=== PATIENT | male | born 1950 | race Hispanic/Latino ===

== ENCOUNTER 2017-09-01 11:14 | Emergency (ER) | payer MEDICARE, MEDICAID ==
--- NOTE | 2017-09-01 11:50 | RAD ---
CHEST 1 VIEW: Date: 09/01/17 HISTORY: Dyspnea. COMPARISON: Chest 2 view dated 07/15/17. FINDINGS: Lungs are hypoinflated. There are perihilar and lower lobe opacities. Small effusion. No pneumothora x. IMPRESSION: Lung hypoinflation and vascular crowding, as well as lower lobe opacities and small effusion. Findin gs can be seen on multifocal pneumonia. CHF is also within the differential. Follow-up 2 views with full inspiration recommended. POS: OFF
[2017-09-01] MEDS ORDERED: Albuterol Sulfate 2.5 mg/0.5 ml Neb ONE ×2 (12:01)
[2017-09-01 12:04] LABS: #Eosinphils 0.1 thou/uL (0.0-0.7); #Lymphocytes 2.1 thou/uL (1.20-3.40); #Monocytes 0.9 thou/uL (0.11-0.59); #Neutrophils 8.1 thou/uL (1.40-6.50); %Basophils 0.2 % (0.0-1.0); %Eosinophils 0.5 % (0.0-10.0); %Lymphocytes 19.1 % (21.0-51.0); %Monocytes 7.7 % (0.0-10.0); Hematocrit 47.7 % (42.0-52.0); Mean Platelet Volume 7.1 fL (7.4-10.4); Red Blood Cell (RBC) Count 4.78 mill/uL (4.70-6.10); White Blood Cell (WBC) Count 11.1 thou/uL (4.8-10.8)
[2017-09-01 12:28] LABS: ALT (SGPT) 59 U/L (8-55); AST (SGOT) 56 U/L (5-34); Alkaline Phosphatase 76 U/L (40-150); Anion Gap 14 mmol/L (10-20); BUN (Urea Nitrogen) 18 mg/dL (8.4-25.7); Bilirubin, Total 0.6 mg/dL (0.2-1.2); CK (CPK) 159 U/L (30-200); Calc. Creatinine Clearance 0 mL/min (70-130); Calcium 9.2 mg/dL (7.8-10.44); Carbon Dioxide 29 mmol/L (23-31); Chloride 102 mmol/L (98-107); Estimated GFR-MDRD 66; Globulin 5.2 g/dL (2.4-3.5); Lipase 56 U/L (8-78); Protein, Total 8.4 g/dL (5.8-8.1)
[2017-09-01 12:40] LABS: Troponin I Less than 0.010 ng/mL (< 0.028)
== END 2017-09-01 14:45 | disposition home or self-care (01) ==
LOC: ERS 11:14
DX: J18.9 Pneumonia, unspecified organism (principal); J44.9 Chronic obstructive pulmonary disease, unspecified; Z79.899 Other long term (current) drug therapy
CPT/HCPCS: 71010; 80053; 82553; 83690; 83880; 84484; 85025; 93005; 94640; 94760; J7611

== ENCOUNTER 2018-10-22 14:43 | Outpatient (CLI) | payer MEDICARE, MEDICAID ==
--- NOTE | 2018-10-22 16:12 | RAD ---
PA AND LATERAL CHEST: Date: 10/22/18 COMPARISON: 07/15/17. HISTORY: Dyspnea. FINDINGS: Heart size is within normal limits with atherosclerotic changes within aorta which is mildly tortuous . Lungs are clear of any infiltrative process. There is some linear scarring in the left base. This a ppears stable. IMPRESSION: Stable exam. Linear scarring within the left lung base. POS: [facility]
== END 2018-10-22 14:44 | disposition home or self-care (01) ==
LOC: RAD 14:43
PROVIDERS: ATTEND Family Medicine
DX: R06.00 Dyspnea, unspecified (principal); J98.4 Other disorders of lung
CPT/HCPCS: 71046

== ENCOUNTER 2019-06-22 14:03 | Outpatient (CLI) | payer MEDICARE, MEDICAID ==
--- NOTE | 2019-06-23 15:05 | PFT ---
PATIENT HISTORY: HEIGHT: 62 in WEIGHT: 185 SMOKER: yes HOW LON yrs PACKS PER DAY cigars PRODUCTIVE COUGH: LUNG DISEASE: PHYSICIAN INTERPRETATION FINAL REPORT: Patient had Pulmonary function test done. He is Bi-Polar Schizophrenic. He has on-going tobacco abuse, unfortunately he was unable to do the pulmonary Function Test. He could not understand the PFT instructions. Only one attempt was done. FEV1 of apparently 2.18 (84%) predicted. and FVC 2.07 (66%) unclear if this is accurate or not. IMPRESSION: PFT show surprisingly normal flows with reduction in vital capacity. 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
== END 2019-06-22 14:04 | disposition home or self-care (01) ==
LOC: CP 14:03
PROVIDERS: ATTEND Internal Medicine Pulmonary Disease
DX: J44.9 Chronic obstructive pulmonary disease, unspecified (principal)
CPT/HCPCS: 94729

== ENCOUNTER 2019-09-03 10:55 | Emergency (ER) | payer MEDICARE, MEDICAID ==
[2019-09-03] MEDS ORDERED: Ibuprofen 800 MG TAB ONE (13:29)
== END 2019-09-03 13:50 | disposition home or self-care (01) ==
LOC: ERS 10:55
DX: M25.562 Pain in left knee (principal); J44.9 Chronic obstructive pulmonary disease, unspecified; I50.9 Heart failure, unspecified; E03.9 Hypothyroidism, unspecified; F17.210 Nicotine dependence, cigarettes, uncomplicated; Z79.899 Other long term (current) drug therapy
CPT/HCPCS: 99283

== ENCOUNTER 2020-11-22 12:17 | Inpatient (IN) | payer MEDICARE, MEDICAID ==
[~2020-11-22 12:17] MED LIST: Iopamidol-370 76% 500 ML 1 ML ONE
[2020-11-22] MEDS ORDERED: Dexamethasone 4 mg/ml Vial ONE (12:52)
[2020-11-22] MEDS ORDERED: Acetaminophen 500 MG TAB ONE (12:52)
[2020-11-22 12:56] LABS: #Basophils 0.1 thou/uL (0.0-0.2); #Lymphocytes 1.2 thou/uL (1.20-3.40); #Monocytes 0.3 thou/uL (0.11-0.59); #Neutrophils 7.4 thou/uL (1.40-6.50); %Basophils 0.6 % (0.0-1.0); %Monocytes 3.5 % (0.0-10.0); %Neutrophils 82.9 % (42.0-75.0); Hemoglobin 15.4 g/dL (14.0-18.0); Mean Corpuscular HGB CONC 30.8 g/dL (32.0-36.0); Mean Corpuscular Hemoglobin 29.2 pg (27.0-31.0); Mean Corpuscular Volume 94.9 fL (78.0-98.0); Mean Platelet Volume 7.9 fL (7.4-10.4); Platelet Count 122 thou/uL (130-400); RBC Distribution Width 12.7 % (11.5-14.5); Red Blood Cell (RBC) Count 5.26 mill/uL (4.70-6.10); White Blood Cell (WBC) Count 8.9 thou/uL (4.8-10.8)
--- NOTE | 2020-11-22 13:16 | RAD ---
EXAM: CHEST ONE VIEW HISTORY: Dyspnea. Urinary frequency. COMPARISON: 10/22/2018 FINDINGS: Cardiac silhouette is magnified by projection but stable in size. Pulmonary vasculature is within nor mal limits. There is patchy increased density seen in the right upper lobe with minimal increased interstitial and patchy densities in the right infrahilar region. Mild atelectasis is present at the left lung base. No other interval change. IMPRESSION: Findings worrisome for infectious process/pneumonia involving the right upper lobe and possibly at th e medial aspect right lung base. Follow-up to resolution is recommended.
[2020-11-22 13:18] LABS: ALT (SGPT) 25 U/L (8-55); AST (SGOT) 70 U/L (5-34); Albumin 3.6 g/dL (3.4-4.8); Alkaline Phosphatase 42 U/L (40-110); Anion Gap 16 mmol/L (10-20); BUN (Urea Nitrogen) 44 mg/dL (8.4-25.7); Bilirubin, Total 0.5 mg/dL (0.2-1.2); CK (CPK) 2569 U/L (30-200); Calc. Creatinine Clearance 0 mL/min (70-130); Calcium 8.2 mg/dL (7.8-10.44); Carbon Dioxide 25 mmol/L (23-31); Chloride 105 mmol/L (98-107); Globulin 4.1 g/dL (2.4-3.5); Glucose 100 mg/dL (83-110); Lipase 83 U/L (8-78); Potassium 4.7 mmol/L (3.5-5.1); Protein, Total 7.7 g/dL (5.8-8.1); Sodium 141 mmol/L (136-145)
[2020-11-22 13:30] LABS: Bilirubin Negative (Negative); Blood, Urine 3+ (Negative); Clarity Turbid (Clear); Glucose, Urine (Dipstick) Normal (Negative); Ketone, Urine 10 mg/dL (Negative); Leukocyte Negative Leu/uL (Negative); Nitrite Negative (Negative); Protein, Urine (Dipstick) 200 mg/dL (Neg-Trace); RBC/HPF Greater than 50 HPF (0-3); Specific Gravity, Urine 1.022 (1.002-1.036); Squamous Epithelial 0-3 HPF (0-3); Urobilinogen Normal mg/dL (Less than 2); WBC/HPF None Seen HPF (0-3); pH, Urine 5.5 (5.0-9.0)
[2020-11-22 13:31] LABS: Bacteria/HPF 1+ HPF (None Seen)
[2020-11-22] MEDS ORDERED: cefTRIAXone\\ROCEPHIN 2 GM VIAL ONE (13:40)
[2020-11-22] MEDS ORDERED: Vancomycin 1 GM/200 ML BAG ONE (13:40)
--- NOTE | 2020-11-22 14:52 | PDOC.FPRHP ---
- History of Present Illness Chief Complaint: altered mental status History of Present Illness: 70 y/o M with PMHx COPD, CKD3 brought by EMS after [facility] tech found patient to be altered and with urinary frequency at home. It is very difficult to get any history from the patient. Unsure of his mental status baseline, has hx mild intellectual disability. He answers most questions in short phrases. He denies essentially all ROS. He lives in an apartment alone in [place], no family in town but has a daughter out of town. He had a fall 1 week ago, but some people helped him up. ED Course: therapeutic lovenox, ASA, vanc, 30ml/kg bolus, tylenol, decadron, rocephin, levaquin - Allergies/Adverse Reactions Allergies Allergy/AdvReac Type Severity Reaction Status Date / Time No Known Allergies Allergy Verified 02/12/20 12:33 - Home Medications Medication Instructions Recorded Confirmed Type Levothyroxine Sodium [Synthroid] 100 mcg PO DAILY 10/18/13 10/18/13 History Lisinopril/Hydrochlorothiazide 1 tab PO DAILY 10/18/13 10/18/13 History [Prinizide] Mometasone/Formoterol 200/5 2 puff INH BID 10/18/13 10/18/13 History [Dulera 200 mcg/5 mcg Inhaler] Simvastatin 20 mg PO QPM 10/18/13 10/18/13 History Sulfamethoxazole/Trimethoprim 1 tab PO BID 10/20/13 10/20/13 History [Bactrim DS] predniSONE [Harpal] 20 mg PO DAILY 10/20/13 10/20/13 History - History PMHx: CKD3, obese, COPD, pulmonary fibrosis, smoker, mild intellectual disability, HLD, hypothyroid, incontinence, HTN, pre-diabetes FHx: noncontributory PSHx: thyroidectomy Social hx: no etoh use, smoker 1972-present - Review of Systems General: denies: fever/chills, fatigue Eyes: denies: vision changes ENT: denies: nasal congestion, rhinorrhea Respiratory: denies: cough, shortness of breath Cardiovascular: denies: chest pain, palpitation, edema Gastrointestinal: denies: nausea, vomiting, diarrhea, abdominal pain Genitourinary: denies: incontinence, dysuria Skin: denies: rashes, lesions Musculoskeletal: denies: pain, swelling Neurological: denies: syncope, seizure - Vital signs BP: 111/95 HR: 117 RR: 37 Tmax: 104.1 Pox: 88% on RA Wt: 91 kg - Physical Exam Constitutional: well developed (awake, alert, confused) HEENT: normocephalic and atraumatic, EOMI Neck: trachea midline Heart: normal S1/S2, no edema, other (tachycardic, exam limited) Lungs: no wheezing, other (poor air movement) Abdomen: soft, non-tender, no masses/distention Musculoskeletal: normal structure, normal tone Neurological: no focal deficit -Neurological: oriented to person, year, place. Not oriented to month Skin: no rash/lesions, no jaundice Heme/Lymphatic: no unusual bruising or bleeding FMR H&P: Results - Labs Result Diagrams: 11/22/20 12:39 11/22/20 12:39 Lab results: WBC 8.9 thou/uL (4.8-10.8) 11/22/20 12:39 Hgb 15.4 g/dL (14.0-18.0) 11/22/20 12:39 Hct 49.9 % (42.0-52.0) 11/22/20 12:39 MCV 94.9 fL (78.0-98.0) 11/22/20 12:39 Plt Count 122 thou/uL (130-400) L 11/22/20 12:39 Neutrophils % 82.9 % (42.0-75.0) H 11/22/20 12:39 Sodium 141 mmol/L (136-145) 11/22/20 12:39 Potassium 4.7 mmol/L (3.5-5.1) 11/22/20 12:39 Chloride 105 mmol/L (98-107) 11/22/20 12:39 Carbon Dioxide 25 mmol/L (23-31) 11/22/20 12:39 BUN 44 mg/dL (8.4-25.7) H 11/22/20 12:39 Creatinine 1.88 mg/dL (0.7-1.3) H 11/22/20 12:39 Glucose 100 mg/dL (83-110) 11/22/20 12:39 Lactic Acid 1.8 mmol/L (0.5-2.2) 11/22/20 12:39 Calcium 8.2 mg/dL (7.8-10.44) 11/22/20 12:39 Total Bilirubin 0.5 mg/dL (0.2-1.2) 11/22/20 12:39 AST 70 U/L (5-34) H 11/22/20 12:39 ALT 25 U/L (8-55) 11/22/20 12:39 Alkaline Phosphatase 42 U/L (40-110) 11/22/20 12:39 Creatine Kinase 2569 U/L (30-200) H 11/22/20 12:39 B-Natriuretic Peptide 22.8 pg/mL (0-100) 11/22/20 12:38 Serum Total Protein 7.7 g/dL (5.8-8.1) 11/22/20 12:39 Albumin 3.6 g/dL (3.4-4.8) 11/22/20 12:39 Lipase 83 U/L (8-78) H 11/22/20 12:39 Urine Ketones 10 mg/dL (Negative) A 11/22/20 13:00 Urine Blood 3+ (Negative) A 11/22/20 13:00 Urine Nitrite Negative (Negative) 11/22/20 13:00 Ur Leukocyte Esterase Negative Gabriel/uL (Negative) 11/22/20 13:00 Urine RBC Greater than 50 HPF (0-3) A 11/22/20 13:00 Urine WBC None Seen HPF (0-3) 11/22/20 13:00 Ur Squamous Epith Cells 0-3 HPF (0-3) 11/22/20 13:00 Urine Bacteria 1+ HPF (None Seen) A 11/22/20 13:00 - EKG Interpretation EKG: sinus tachycardia FMR H&P: Upper Level - Plan 70 yo M with PMH COPD, CKD, hypothyroid is admitted for sepsis 2/2 pneumonia, rhabdo, josafat. Sepsis 2/2 PNA - tmax 104.1, tachypnea, tachycardia on admission with R upper lobe infiltrate on CXR - CTA with bilateral ground glass opacities c/w covid - s/p rocephin, vanc, levaquin in ED - continue rocephin (11/22) and azithromycin - pending Bcx, Ucx - ordered procalcitonin - s/p 30mL/kg bolus ordered in ED, continue IVF Mild Rhabdomyolysis - CK 2500, continue aggressive fluids, strict I/Os and will titrate based on urine output - repeat CK in am - urine with hematuria, cultures pending COVID+ - unknown if any symptom onset - rapid COVID + 11/22 - reported 88% on RA in ED, no O2 requirement on initial evaluation - less likely cause of presentation at this time - s/p decadron in ED, continue steroids at this time also considering COPD hx. Otherwise since no O2 requirement, plasma and remdesivir not indicated now JOSAFAT on CKD3 - baseline Cr 1.1, GFR 60s - admission Cr 1.88, fluid resuscitate and recheck in am Thrombocytopenia - platelets 122, no hx of this, likely 2/2 above Mild AST elevation - 70 on admission, has been mildly elevated in past COPD - continue dickson inhaler (on advair at home) with prn Hypothyroid - continue home synthroid, check TSH HTN - hold home lisinopril, HCTZ until BP can tolerate HLD - continue home statin IVF: LR @ 200 DVT ppx: Lovenox Diet: HH Code: FULL - patient did not seem to have a great understanding of code status PCP: JORDEN Attending: Kyung Dispo: admit inpatient, expected LOS >48 hrs Addendum - Attending - Attending Attestation Date/Time: 11/22/20 [id number] I personally evaluated the patient and discussed the management with Dr. Delacruz/Bernadette. I agree with the History, Examination, Assessment and Plan documented above with any addition or exceptions noted below.
[2020-11-22] MEDS ORDERED: Acetaminophen 325 MG TAB PO PRN (15:01)
[2020-11-22] MEDS ORDERED: Acetaminophen 650 MG Suppository PR PRN (15:01)
[2020-11-22] MEDS ORDERED: Calcium Carbonate 500 MG ChewTAB PO PRN (15:01)
[2020-11-22] MEDS ORDERED: Lactated Ringer's 1,000 ML IV SCH (15:45)
[2020-11-22 15:52] LABS: SARS-CoV-2 NAA Rapid Test DETECTED (NotDetected)
--- NOTE | 2020-11-22 16:38 | CT ---
CTA CHEST WITH CONTRAST: 11/22/20 Axial tomograms obtained following angio protocol with multiplanar reconstruction and 3D postprocessi ng. INDICATIONS: Elevated D-dimer. Short of breath. Sepsis. FINDINGS: Pulmonary arteries show adequate opacification; however, the distal pulmonary arteries are degraded d ue to artifact. There is apparent loss of contrast in the left lower lobe pulmonary artery just beyon d the bifurcation of the interlobar left pulmonary artery. This is felt to be artifactual, although e mbolus is not completely excluded. No proximal pulmonary embolus identified. Thoracic aorta is unremarkable without dissection. Nonspecific mediastinal and hilar lymph nodes. Review of the lung sanchez show ground glass infiltrate s bilaterally. Ground glass infiltrates seen throughout the right upper lobe and some mild ground gla ss infiltrate in the left upper lobe. Ground glass and confluent infiltrate in both posterior lower l obes. No effusion. Images through the upper abdomen unremarkable. MPRESSION: 1. No evidence of proximal pulmonary embolus. More distal pulmonary arteries are suboptimally ev aluated due to artifact as discussed above. 2. Bilateral ground glass type infiltrates consistent with COVID pneumonia. Findings discussed with Dr. Evans. Code CR POS: [facility]
[2020-11-22] MEDS ORDERED: Aspirin Chewable 81 MG TAB ONE (17:26)
[2020-11-22 17:29] LABS: Troponin I 0.024 ng/mL (< 0.028)
[2020-11-22] MEDS ORDERED: Norepinephrine 8 MG/0.9% NS 250 ML ONE (20:43)
[2020-11-22] MEDS ORDERED: Famotidine 20 MG TAB PO SCH (21:00)
[2020-11-22 21:42] LABS: Troponin I 0.022 ng/mL (< 0.028)
[2020-11-22 23:15] LABS: Actual Bicarbonate (HCO3a) 15.9 mEq/L (22-28); Analyzer IN Cardio ER; Base Excess (BEa) -10.5 mEq/L (-2.0 to +3.0); CO2 Tension 37.2 mmHg (35.0-45.0); Calcium, Ionized (arterial) 1.02 mmol/L (1.12-1.30); Carboxyhemoglobin (COHb) 0.1 gm% (0.0-3.0); O2 Tension (PaO2), arterial 186.3 mmHg (> 70.0); Potassium - ABG Lab 4.58 mmol/L (3.70-5.30)
[2020-11-22] MEDS ORDERED: Sodium Bicarb 50 MEQ/50 ML VIAL ONE (23:17)
[2020-11-22 23:20] LABS: Puncture Site RRA; pH, Arterial 7.25 (7.35-7.45)
[2020-11-22 23:58] LABS: Mean Corpuscular HGB CONC 32.2 g/dL (32.0-36.0); Mean Corpuscular Hemoglobin 31.2 pg (27.0-31.0); Mean Platelet Volume 8.3 fL (7.4-10.4); Platelet Count 122 thou/uL (130-400); RBC Distribution Width 12.9 % (11.5-14.5); Red Blood Cell (RBC) Count 4.48 mill/uL (4.70-6.10); White Blood Cell (WBC) Count 17.8 thou/uL (4.8-10.8)
[2020-11-23 00:11] LABS: ALT (SGPT) 22 U/L (8-55); AST (SGOT) 57 U/L (5-34); Albumin 2.8 g/dL (3.4-4.8); Alkaline Phosphatase 36 U/L (40-110); Anion Gap 15 mmol/L (10-20); BUN (Urea Nitrogen) 40 mg/dL (8.4-25.7); Bilirubin, Total 0.3 mg/dL (0.2-1.2); CK (CPK) 2092 U/L (30-200); Calc. Creatinine Clearance 0 mL/min (70-130); Calcium 6.5 mg/dL (7.8-10.44); Carbon Dioxide 20 mmol/L (23-31); Chloride 112 mmol/L (98-107); Globulin 3.2 g/dL (2.4-3.5); Glucose 178 mg/dL (83-110); Potassium 4.8 mmol/L (3.5-5.1); Sodium 142 mmol/L (136-145)
--- NOTE | 2020-11-23 00:12 | PDOC.BPN ---
<Valencia Nagel - Last Filed: 11/23/20 00:01> - Brief Progress Note Called by ER nurse due to patient having hypotension with SBPs 70-80s, did not improve with 1L bolus fluids. Started levophed peripherally with improvement of pressures. Attempted to wean patient off of levophed but pressures would not maintain. Assessed patient in which I am unsure of his baseline mentation but he was experiencing difficulty in comprehending my questions-alert and oriented x3. Nurse reported his oxygen went to 80s so was started on NRB. ABG obtained which showed metabolic acidosis with pH 7.2 pCO2 37.2, pO2 186.3, HCO3 15. Ordered repeat lactic acid which labs are pending. Noted try mucosal membranes and states he has only put out ~300 this shift-urine was dark colored. Patient with noted episodes of subcostal retractions. Cancel admission to medical and instead will be admitted to CCU due to mixed septic/hypovolemic shock 2/[address] chauhan, strict i/o and continue fluid boluses as I suspect patient is several liters down, has received ~6L over the past 12 hours. Will start on bipap due to concern for respiratory fatigue. Will reassess later tonight. I suspect levophed can be weaned quickly and bipap as well after adequate fluid resuscitation. <Mykel Ma - Last Filed: 11/23/20 00:26> Addendum - Attending - Attending Attestation Date/Time: 11/23/20 0023 I personally evaluated the patient and discussed the management with Dr. Nagel. I agree with the Assessment adn plan as documented above. He is oxygenating adn ventilating adequately. His tachypnea is compensatory for underlying metabolic acidosis. His metabolic acidosis is from hypoperfusion from hypovolemia and sepsis. Additional fluid bolus to be given. I expect him to improve and come off levophed with continued fluid resuscitation if he does not tire out.
[2020-11-23 00:19] LABS: Band 19 % (5-11); Lymphocytes 3 % (21-51); MDiff Complete? YES; Monocytes 5 % (0-10); Neutrophil 73 % (42-75); Platelet Morphology Comment Appears Decreased; RBC Morphology Normal
[2020-11-23] MEDS: Mometasone 200 MCG/Formoterol 5 MCG 120 PUFF INHALER INH SCH ×3 (00:51→21:41)
[2020-11-23 01:03] VITALS: BMI 21.7
[2020-11-23] MEDS ORDERED: Norepinephrine 8 MG/0.9% NS 250 ML IVPB PRN (01:10)
[2020-11-23] MEDS: Lactated Ringer's 1,000 ML IV SCH ×6 (03:02→17:33)
[2020-11-23] MEDS: Simvastatin 20 MG TAB PO SCH ×2 (03:03→20:47)
[2020-11-23 04:11] LABS: Anion Gap 18 mmol/L (10-20); BUN (Urea Nitrogen) 38 mg/dL (8.4-25.7); CK (CPK) 1997 U/L (30-200); Calc. Creatinine Clearance 49 mL/min (70-130); Calcium 6.5 mg/dL (7.8-10.44); Carbon Dioxide 16 mmol/L (23-31); Chloride 113 mmol/L (98-107); Glucose 177 mg/dL (83-110); Potassium 4.9 mmol/L (3.5-5.1); Sodium 142 mmol/L (136-145)
[2020-11-23 04:20] LABS: Hemoglobin 13.9 g/dL (14.0-18.0); MDiff Complete? YES; Mean Corpuscular HGB CONC 31.9 g/dL (32.0-36.0); Mean Corpuscular Hemoglobin 30.9 pg (27.0-31.0); Mean Corpuscular Volume 96.9 fL (78.0-98.0); Mean Platelet Volume 8.2 fL (7.4-10.4); Platelet Count 117 thou/uL (130-400); Red Blood Cell (RBC) Count 4.49 mill/uL (4.70-6.10); White Blood Cell (WBC) Count 16.8 thou/uL (4.8-10.8)
[2020-11-23 04:21] LABS: Band 13 % (5-11); Hypochromia SLIGHT = 6-15 cells (100X) (0-5/hpf); Lymphocytes 3 % (21-51); Neutrophil 84 % (42-75); Platelet Morphology Comment Appears Decreased
[2020-11-23] MEDS: Levothyroxine Sodium 100 MCG TAB PO SCH (05:00)
[2020-11-23] MEDS ORDERED: Lactated Ringer's 1,000 ML IV SCH ×2 (06:15→13:18)
--- NOTE | 2020-11-23 07:21 | PDOC.FM ---
- Subjective Subjective: Pt is doing ok this morning. He denies dyspnea while on bipap. Otherwise he has no complaints. Overnight he had about 7 L fluids and was receiving an 8th L currently. He had poor UOP overnight. In the prior hour he had 50 cc UOP. He states he stopped drinking alcohol 3 months ago. It is difficult to ask questions to patient. Unsure if he has not been drinking fluids prior to admission. - Objective Vital Signs & Weight: Vital Signs (12 hours) Temp Pulse Pulse Ox 11/23/20 06:59 64 96 11/23/20 04:00 97.4 F L 11/23/20 02:56 98 11/23/20 01:00 97.5 F L Weight Weight 66.9 kg Most Recent Monitor Data Heart Rate from ECG 51 NIBP 116/70 NIBP BP-Mean 85 Respiration from ECG 20 SpO2 99 I&O: 11/22/20 11/23/20 11/24/20 06:59 06:59 06:59 Intake Total 855 Output Total 300 Balance 555 Result Diagrams: 11/23/20 03:40 11/23/20 03:40 Phys Exam - Physical Examination Constitutional: NAD HEENT: sclera anicteric Neck: no JVD, full ROM Respiratory: no wheezing, clear to auscultation bilateral Cardiovascular: RRR, no significant murmur Gastrointestinal: soft, non-tender, no distention, positive bowel sounds Musculoskeletal: no edema, pulses present Neurological: non-focal, normal sensation, moves all 4 limbs Psychiatric: normal affect, A&O x 3 Skin: no rash Dx/Plan - Plan Plan: 70 yo M with PMH COPD, CKD, hypothyroid is admitted for sepsis 2/2 pneumonia, rhabdo, josafat. Sepsis 2/2 Bacterial Pneumonia vs COVID Pneumonia - tmax 104.1, tachypnea, tachycardia on admission with R upper lobe infiltrate on CXR - CTA with bilateral ground glass opacities c/w covid - continue rocephin (11/22) and azithromycin - procalcintonin elevated so will continue abx. He also has history of COPD - pending Bcx, Ucx - Received ~8 L of fluids - Titrate off of levophed with improvement of BP's once last bolus has completed assuming he remains hemodynamically stable Mild Rhabdomyolysis - improving. Continue fluids. Likely secondary to hypoperfusion as seen with an elevated lactic acid. COVID+ - unknown if any symptom onset - rapid COVID + 11/22 - Will discuss administering plasma, remdesivir; continue dexamethasone - Titrate off bipap as tolerated - Lovenox prophylactic JOSAFAT on CKD3 - baseline Cr 1.1, GFR 60s - improving with fluids but continues with low UOP. Continue to monitor. Hopefully pt will not have ATN after severe dehydration. Thrombocytopenia - platelets 122, no hx of this, likely 2/2 above Mild AST elevation - 70 on admission, has been mildly elevated in past COPD - continue dickson inhaler (on advair at home) with prn Hypothyroid - continue home synthroid HTN - hold home lisinopril, HCTZ until BP can tolerate and kidney function returns to baseline HLD - continue home statin IVF: LR @ 200 DVT ppx: Lovenox Diet: HH Code: FULL PCP: JORDEN Attending: Kyung Dispo: admit inpatient, expected LOS >48 hrs Addendum - Attending - Attending Attestation Date/Time: 11/23/20 1869 I personally evaluated the patient and discussed the management with Dr. Alvarez. I agree with the History, Examination, Assessment and Plan documented above with any addition or exceptions noted below. Patient improved. He does not appear to have a need for BIPAP therapy and will work to wean him from that and onto NC. If we can do that, will transfer out of CCU. His acidosis is hyperchloremic and related to volume repletion. Continue abx given his unknown history and presentation. Continue IV fluid resuscitation.
[2020-11-23] MEDS: Enoxaparin Sodium 40 MG/0.4 ML SYRINGE SC SCH (08:58)
[2020-11-23] MEDS: Dexamethasone 4 MG TAB PO SCH (08:58)
[2020-11-23] MEDS: cefTRIAXone\\ROCEPHIN 1 GM in Sodium Chloride 0.9% 100 ML IVPB SCH (13:44)
[2020-11-23] MEDS: Azithromycin 500 MG in Sodium Chloride 0.9% 250 ML 250 ML IVPB SCH (14:20)
--- NOTE | 2020-11-23 17:36 | PQF ---
CLINICAL DOCUMENTATION CLARIFICATION FORM: Dear Dr. Alvarez/ Attending Dr. Yusuf Date: 11/23/2020 Please exercise your independent, professional judgment in responding to the clarification form. Clinical indicators are provided on the bottom of this form for your review. Please check appropriate box(es): [X ] Acute Respiratory Failure: [ X ] with Hypoxia [ ] with Hypercapnia [ ] Acute On Chronic Respiratory Failure: [ ] with Hypoxia [ ] with Hypercapnia [ ] Acute Respiratory Failure due to: (etiology) [ ] Chronic Respiratory Failure only [ ] with Hypoxia [ ] with Hypercapnia [ ] Other diagnosis [ ] Unable to determine In addition, please specify: Present on Admission (POA): [ X ] Yes [ ] No [ ] Unable to determine For continuity of documentation, please document condition throughout progress notes and discharge summary. Thank You. To be completed by CDI/Coding staff for physician review: CLINICAL INDICATORS - SIGNS / SYMPTOMS / LABS / RESULTS AND LOCATION IN MR *ER RECORD 11/22: HPI: found at home with sats in the 70s and 80s VS @ 1219: BP 111/65, pulse 117, Resp. 24, O2 sat 88 on RA @ 2229 pulse 77, Resp. 25, O2 sat 89 on 3L oxygen @ 2235 pulse 69, Resp. 22, O2 sat 93 on Non Rebreather DX: Covid pneumonia with hypoxia *11/13 Brief pn (Nagel) ABG showed metabolic acidosis with pH 7.2 pCO2 37.2, pO2 186.3, HCO3 15. Pt with noted episodes of subcostal retractions. RISK FACTORS / RESULTS AND LOCATION IN MR *H&P 11/22 (Bernadette) PMH CKD 3, COPD. Upper level: admitted for sepsis 2/2 pneumonia, rhabdo, josafat. COVID + TREATMENTS / RESULTS AND LOCATION IN MR *11/23 Brief pn (Nagel) admit to CCU Will start on bipap due to concern for respiratory fatigue *MAR: Order 11/22: Duoneb q4 hr Thank you, Dorys Garay RN, BSN [email or web address] This is a permanent part of the Medical Record [facility]
--- NOTE | 2020-11-23 18:09 | CON ---
DATE OF CONSULTATION: 11/23/2020 HISTORY OF PRESENT ILLNESS: Mr. Lao is a gentleman, who is moved into the ICU with relatively low blood pressure and confusion. His mental status is waxed and waned. He did have a positive COVID screen. He has a history with [facility] apparently, which led to them calling EMS for transport. It is unknown what his baseline problems are. PAST MEDICAL HISTORY: Remarkable for hypothyroidism, hypertension, glucose intolerance. FAMILY HISTORY: Negative for lung disease in early age. SOCIAL HISTORY: He is a nondrinker. Apparently, he is a smoker. REVIEW OF SYSTEMS: Not accurately obtainable. PHYSICAL EXAMINATION: VITAL SIGNS: Heart rates in the 70s, oximetry is 94% to 97% today, blood pressure 104/61 at 4 p.m. intake and outputs, positive 555 this morning. LUNGS: Remarkable for coarse equal breath sounds. HEART: Regular rhythm. ABDOMEN: Soft. EXTREMITIES: Without edema. LABORATORY DATA: White count 16.8, hemoglobin 13.9, platelets 117. Sodium 142, potassium 4.9, chloride 113, bicarb 16, BUN 38, creatinine 1.31. IMPRESSION: 1. COVID pneumonia. 2. Mild hyperchloremic acidosis, probably he should be switched to half-normal saline. Probably cannot reliably be sent to the room since he would require a sitter and we do not want to place a sitter in the room with a COVID patient. At this point in time, we will just continue supportive care either in the ICU or the intermediate care unit. This is a 70 min consult with greater than 50% of the time spent on the unit with coordination of care Job ID: [id number] [facility]
[2020-11-23] MEDS ORDERED: REMDESIVIR (EUA) 200 MG in Sodium Chloride 0.9% 250 ML 210 ML IV SCH (20:00)
[2020-11-24] MEDS: Mometasone 200 MCG/Formoterol 5 MCG 120 PUFF INHALER INH SCH ×2 (06:01→18:04)
[2020-11-24] MEDS: Levothyroxine Sodium 100 MCG TAB PO SCH (06:01)
[2020-11-24 06:25] LABS: #Lymphocytes 0.7 thou/uL (1.20-3.40); #Monocytes 0.3 thou/uL (0.11-0.59); #Neutrophils 13.1 thou/uL (1.40-6.50); %Basophils 0.2 % (0.0-1.0); %Lymphocytes 4.9 % (21.0-51.0); %Monocytes 2.1 % (0.0-10.0); %Neutrophils 92.8 % (42.0-75.0); Hemoglobin 13.7 g/dL (14.0-18.0); Mean Corpuscular HGB CONC 31.8 g/dL (32.0-36.0); Mean Corpuscular Hemoglobin 30.5 pg (27.0-31.0); Mean Platelet Volume 8.8 fL (7.4-10.4); Platelet Count 131 thou/uL (130-400); Red Blood Cell (RBC) Count 4.49 mill/uL (4.70-6.10); White Blood Cell (WBC) Count 14.1 thou/uL (4.8-10.8)
[2020-11-24 06:46] LABS: ALT (SGPT) 21 U/L (8-55); AST (SGOT) 38 U/L (5-34); Albumin 2.5 g/dL (3.4-4.8); Alkaline Phosphatase 36 U/L (40-110); Anion Gap 15 mmol/L (10-20); BUN (Urea Nitrogen) 40 mg/dL (8.4-25.7); Bilirubin, Total 0.3 mg/dL (0.2-1.2); Calc. Creatinine Clearance 53 mL/min (70-130); Calcium 6.6 mg/dL (7.8-10.44); Carbon Dioxide 21 mmol/L (23-31); Chloride 111 mmol/L (98-107); Globulin 3.1 g/dL (2.4-3.5); Glucose 143 mg/dL (83-110); Potassium 4.9 mmol/L (3.5-5.1); Protein, Total 5.6 g/dL (5.8-8.1); Sodium 142 mmol/L (136-145)
--- NOTE | 2020-11-24 07:13 | PDOC.FM ---
- Subjective Subjective: Pt is doing well today. He did not have any overnight complications. He is sat'ing well on 4 L NC oxygen. Conv Plasma not administered at this time - unable to reach family for confirmation. - Objective Vital Signs & Weight: Vital Signs (12 hours) Temp Pulse Resp BP Pulse Ox 11/24/20 04:50 97.7 F 58 L 16 108/58 L 98 11/24/20 00:28 100 11/23/20 21:54 98.2 F 69 20 100 11/23/20 20:00 96.3 F L 99 Weight Admit Weight 66.678 kg Weight 66.9 kg Most Recent Monitor Data Heart Rate from ECG 71 NIBP 88/57 NIBP BP-Mean 67 Respiration from ECG 29 SpO2 99 I&O: 11/23/20 11/24/20 11/25/20 06:59 06:59 06:59 Intake Total 855 4448 Output Total 300 1010 Balance 555 3438 Result Diagrams: 11/24/20 05:52 11/24/20 05:52 Phys Exam - Physical Examination Constitutional: NAD HEENT: PERRLA, sclera anicteric Neck: no JVD, full ROM Respiratory: no rhonchi mild wheezing on exam Cardiovascular: RRR, no significant murmur Gastrointestinal: soft, no distention Musculoskeletal: no edema, pulses present Neurological: non-focal, normal sensation Psychiatric: A&O x 3 Skin: no rash, cap refill <2 seconds Dx/Plan - Plan Plan: 70 yo M with PMH COPD, CKD, hypothyroid is admitted for sepsis 2/2 pneumonia, rhabdo, zak. Sepsis (resolved) 2/2 Bacterial Pneumonia vs COVID Pneumonia - continue rocephin (11/22) and azithromycin - procalcintonin elevated so will continue abx. He also has history of COPD. Pending repeat procalcitonin. - pending Bcx, Ucx - Received ~8 L of fluids - BP's stable without levophed, d/c fluids and encourage PO intake Mild Rhabdomyolysis - will not trend CK. Monitor Kidney Function COVID+ - good saturation with 4 L NC O2 but is tachypneic - pending plasma, remdesivir administered. Currently treated with dexamethasone. ZAK on CKD3 - improving - baseline Cr 1.1, GFR 60s - Continue to monitor. Hopefully pt will not have ATN after severe dehydration. Thrombocytopenia - stable, low normal today Mild AST elevation - improving. Possibly 2/2 hypotension - 70 on admission, has been mildly elevated in past - hx of alcohol use but stopped 3 months ago. Unsure if reliable COPD - continue dickson inhaler (on advair at home) with prn Hypothyroid - continue home synthroid HTN - hold home lisinopril, HCTZ until BP can tolerate and kidney function returns to baseline HLD - continue home statin Group B Strep Bactuiria - < 100,000 CFU's but is on a abx IVF: PO DVT ppx: Lovenox Diet: HH Code: FULL PCP: JORDEN Dispo: admit inpatient, expected LOS >48 hrs Addendum - Attending - Attending Attestation Date/Time: 11/24/20 1110 I personally evaluated the patient and discussed the management with Dr. Alvarez. I agree with the History, Examination, Assessment and Plan documented above with any addition or exceptions noted below. Patient improved. Now on O2 by NC and tolerating well with normal O2 sats. Wean as tolerated. Continue treatment for suspected PNA as well as UTI. Cultures pending. Mentation overall stable, suspect this is his baseline. Acid/Base status improved.
[2020-11-24] MEDS: Dexamethasone 4 MG TAB PO SCH (10:48)
[2020-11-24] MEDS: Enoxaparin Sodium 40 MG/0.4 ML SYRINGE SC SCH (10:48)
[2020-11-24] MEDS: Lactated Ringer's 1,000 ML IV SCH (11:27)
[2020-11-24] MEDS: cefTRIAXone\\ROCEPHIN 1 GM in Sodium Chloride 0.9% 100 ML IVPB SCH (14:16)
[2020-11-24] MEDS: Azithromycin 500 MG in Sodium Chloride 0.9% 250 ML 250 ML IVPB SCH (15:46)
[2020-11-24] MEDS: REMDESIVIR (EUA) 100 MG in Sodium Chloride 0.9% 250 ML 230 ML IV SCH (20:30)
[2020-11-24] MEDS: Simvastatin 20 MG TAB PO SCH (20:31)
[2020-11-25] MEDS: Levothyroxine Sodium 100 MCG TAB PO SCH (05:29)
[2020-11-25] MEDS: Mometasone 200 MCG/Formoterol 5 MCG 120 PUFF INHALER INH SCH ×2 (05:30→18:28)
[2020-11-25 05:47] LABS: #Lymphocytes 0.6 thou/uL (1.20-3.40); #Monocytes 0.4 thou/uL (0.11-0.59); #Neutrophils 11.8 thou/uL (1.40-6.50); %Basophils 0.2 % (0.0-1.0); %Lymphocytes 4.5 % (21.0-51.0); %Monocytes 3.2 % (0.0-10.0); Hemoglobin 13.2 g/dL (14.0-18.0); Mean Corpuscular HGB CONC 31.9 g/dL (32.0-36.0); Mean Corpuscular Hemoglobin 30.6 pg (27.0-31.0); Mean Corpuscular Volume 95.8 fL (78.0-98.0); Platelet Count 153 thou/uL (130-400); RBC Distribution Width 12.9 % (11.5-14.5); Red Blood Cell (RBC) Count 4.32 mill/uL (4.70-6.10); White Blood Cell (WBC) Count 12.8 thou/uL (4.8-10.8)
--- NOTE | 2020-11-25 06:12 | PDOC.FM ---
- Subjective Subjective: Pt is doing well today. He remains requiring oxygen and nurse states he desats with ambulation. He is tolerating PO intake. He has family but per him he does not have family in town. Nursing staff has 2 numbers of familly member. - Objective Vital Signs & Weight: Vital Signs (12 hours) Temp Pulse Pulse Resp BP BP Pulse Ox 11/25/20 03:38 95 11/24/20 20:10 97.9 F 85 22 H 109/56 L 96 11/24/20 20:00 96 11/24/20 18:50 97.2 F L 74 22 H 111/64 96 11/24/20 18:25 97.8 F 65 18 102/65 97 Weight Admit Weight 66.678 kg Weight 82.236 kg Most Recent Monitor Data Heart Rate from ECG 71 NIBP 88/57 NIBP BP-Mean 67 Respiration from ECG 29 SpO2 99 I&O: 11/23/20 11/24/20 11/25/20 06:59 06:59 06:59 Intake Total 855 4448 1090 Output Total 300 1010 Balance 555 3438 1090 Result Diagrams: 11/25/20 05:10 11/25/20 05:10 Phys Exam - Physical Examination Constitutional: NAD HEENT: PERRLA, moist MMs Neck: no JVD, full ROM bilateral crackles diffusely Cardiovascular: RRR, no significant murmur Gastrointestinal: soft, non-tender Musculoskeletal: no edema, pulses present Neurological: non-focal, moves all 4 limbs Psychiatric: A&O x 3 Skin: no rash, normal turgor Dx/Plan - Plan Plan: 70 yo M with PMH COPD, CKD, hypothyroid is admitted for sepsis 2/2 pneumonia, rhabdo, zak. Sepsis (resolved) 2/2 Bacterial Pneumonia vs COVID Pneumonia - continue rocephin (11/22) and azithromycin - procalcintonin elevated so will continue abx. He also has history of COPD. - BP's stable without levophed, d/c fluids and encourage PO intake - Clinically improving, resting comfortably COVID+ - good saturation with 4 L NC O2 but is tachypneic - pending plasma, remdesivir administered. Currently treated with dexamethasone. - PT/OT consulted ZAK on CKD3 - improving - baseline Cr 1.1, GFR 60s - Continue to monitor. Hopefully pt will not have ATN after severe dehydration. Thrombocytopenia - stable, low normal today Mild AST elevation - resolved Possibly 2/2 hypotension - 70 on admission, has been mildly elevated in past - hx of alcohol use but stopped 3 months ago. Unsure if reliable COPD - continue dickson inhaler (on advair at home) with prn Hypothyroid - continue home synthroid HTN - hold home lisinopril, HCTZ until BP can tolerate and kidney function returns to baseline HLD - continue home statin Group B Strep Bactuiria - < 100,000 CFU's but is on a abx IVF: PO DVT ppx: Lovenox Diet: HH Code: FULL PCP: JORDEN Dispo: admit inpatient, expected LOS >48 hrs Addendum - Attending - Attending Attestation Date/Time: 11/25/20 2589 I personally evaluated the patient and discussed the management with Dr. Alvarez. I agree with the History, Examination, Assessment and Plan documented above with any addition or exceptions noted below. Patient stable. Continue to wean O2 as tolerated. Continue IV abx for concerns for UTI and pneumonia. Start dispo planning though this may be difficult given his social situation and lack of support.
[2020-11-25 06:13] LABS: ALT (SGPT) 24 U/L (8-55); AST (SGOT) 34 U/L (5-34); Albumin 2.5 g/dL (3.4-4.8); Alkaline Phosphatase 38 U/L (40-110); Anion Gap 14 mmol/L (10-20); BUN (Urea Nitrogen) 39 mg/dL (8.4-25.7); Bilirubin, Total 0.3 mg/dL (0.2-1.2); Calc. Creatinine Clearance 67 mL/min (70-130); Calcium 6.5 mg/dL (7.8-10.44); Carbon Dioxide 22 mmol/L (23-31); Chloride 113 mmol/L (98-107); Glucose 148 mg/dL (83-110); Potassium 4.6 mmol/L (3.5-5.1); Protein, Total 5.5 g/dL (5.8-8.1); Sodium 144 mmol/L (136-145)
--- NOTE | 2020-11-25 07:47 | PRG ---
DATE OF SERVICE: 11/24/2020 ACTIVITY: Shai Lao is a 70-year-old schizophrenic bipolar patient with virgen positive pneumonia, abnormal chest x-rays. OBJECTIVE: VITAL SIGNS: Temperature 98, pulse 76, respiratory rate 22, sats are 95% on 2L, blood pressure 102/64. CHEST: Bilateral crackles. CARDIAC: Normal S1, S2. No gallops. ABDOMEN: No masses. LABORATORY DATA: Creatinine 1.21 and BUN 40. ASSESSMENT: Virgen positive pneumonia, respiratory failure, severe bipolar disorder. Still smoking unfortunately. I would continue the remdesivir, convalescent plasma. Is not any empiric antibiotics. Job ID: [id number]
[2020-11-25] MEDS: Dexamethasone 4 MG TAB PO SCH (08:50)
[2020-11-25] MEDS: Enoxaparin Sodium 40 MG/0.4 ML SYRINGE SC SCH (08:50)
[2020-11-25] MEDS: Azithromycin 500 MG in Sodium Chloride 0.9% 250 ML 250 ML IVPB SCH (12:40)
[2020-11-25] MEDS: cefTRIAXone\\ROCEPHIN 1 GM in Sodium Chloride 0.9% 100 ML IVPB SCH (14:32)
--- NOTE | 2020-11-25 14:45 | PRG ---
DATE OF SERVICE: 11/25/2020 OBJECTIVE: VITAL SIGNS: Temperature 98, pulse 69, respirations 17, saturations 99% on 3 L, blood pressure 160/94. GENERAL: Schizophrenia, bipolar patient, in mild distress. CHEST: No wheezing. No crackles. CARDIAC: Normal S1, S2. No gallops. ABDOMEN: No masses. ASSESSMENT: Virgen positive pneumonia, bipolar, chronic obstructive pulmonary disease, tobacco abuse. PLAN: Continue antibiotics. Continue steroids. Continue remdesivir. If he remains stable, eventually placement. Job ID: [id number]
--- NOTE | 2020-11-25 15:22 | EKG ---
Test Reason : Blood Pressure : / mmHG Vent. Rate : 113 BPM Atrial Rate : 113 BPM P-R Int : 128 ms QRS Dur : 064 ms QT Int : 302 ms P-R-T Axes : 067 068 070 degrees QTc Int : 414 ms Sinus tachycardia Otherwise normal ECG Confirmed by PAIGE PATEL, JEN ([id number]), story editor MATTHEW GAO ([id number]) on 11/25/2020 3:22:04 PM Referred By: Confirmed By:JEN GIBSON MD
[2020-11-25] MEDS: Simvastatin 20 MG TAB PO SCH (20:34)
[2020-11-25] MEDS: REMDESIVIR (EUA) 100 MG in Sodium Chloride 0.9% 250 ML 230 ML IV SCH (20:34)
[2020-11-26 05:03] LABS: #Lymphocytes 0.6 thou/uL (1.20-3.40); #Monocytes 0.5 thou/uL (0.11-0.59); #Neutrophils 10.2 thou/uL (1.40-6.50); %Basophils 0.1 % (0.0-1.0); %Lymphocytes 4.9 % (21.0-51.0); %Monocytes 4.3 % (0.0-10.0); %Neutrophils 90.7 % (42.0-75.0); Hemoglobin 12.8 g/dL (14.0-18.0); Mean Corpuscular HGB CONC 32.4 g/dL (32.0-36.0); Mean Corpuscular Hemoglobin 30.9 pg (27.0-31.0); Mean Corpuscular Volume 95.5 fL (78.0-98.0); Mean Platelet Volume 8.8 fL (7.4-10.4); Platelet Count 170 thou/uL (130-400); Red Blood Cell (RBC) Count 4.13 mill/uL (4.70-6.10); White Blood Cell (WBC) Count 11.2 thou/uL (4.8-10.8)
[2020-11-26 05:31] LABS: ALT (SGPT) 20 U/L (8-55); AST (SGOT) 25 U/L (5-34); Albumin 2.5 g/dL (3.4-4.8); Alkaline Phosphatase 36 U/L (40-110); Anion Gap 12 mmol/L (10-20); BUN (Urea Nitrogen) 37 mg/dL (8.4-25.7); Bilirubin, Total 0.3 mg/dL (0.2-1.2); Calc. Creatinine Clearance 66 mL/min (70-130); Calcium 6.4 mg/dL (7.8-10.44); Carbon Dioxide 23 mmol/L (23-31); Chloride 112 mmol/L (98-107); Globulin 2.8 g/dL (2.4-3.5); Glucose 150 mg/dL (83-110); Potassium 4.2 mmol/L (3.5-5.1); Protein, Total 5.3 g/dL (5.8-8.1); Sodium 143 mmol/L (136-145)
[2020-11-26] MEDS: Levothyroxine Sodium 100 MCG TAB PO SCH (05:49)
[2020-11-26] MEDS: Mometasone 200 MCG/Formoterol 5 MCG 120 PUFF INHALER INH SCH ×2 (05:49→17:16)
--- NOTE | 2020-11-26 05:52 | PDOC.FM ---
- Subjective Subjective: Pt is doing well. He does not have any complaints. He is lying in bed as usual. PT/OT recommends home with HH. He did not have oxygen on initially and was sat'ing 93% but with conversation desaturated to mid 80's. - Objective Vital Signs & Weight: Vital Signs (12 hours) Pulse Resp BP Pulse Ox 11/26/20 04:42 94 L 11/26/20 04:00 44 L 18 95/54 L 97 11/26/20 01:00 47 L 20 98/55 L 94 L 11/25/20 22:30 61 105/55 L 94 L 11/25/20 20:00 94 L Weight Admit Weight 66.678 kg Weight 82.236 kg Most Recent Monitor Data Heart Rate from ECG 71 NIBP 88/57 NIBP BP-Mean 67 Respiration from ECG 29 SpO2 99 I&O: 11/24/20 11/25/20 11/26/20 06:59 06:59 06:59 Intake Total 4448 1090 Output Total 1010 100 Balance 3438 1090 -100 Result Diagrams: 11/26/20 04:51 11/26/20 04:51 Phys Exam - Physical Examination Constitutional: NAD HEENT: PERRLA dry MMM Neck: no JVD, full ROM Respiratory: no wheezing, clear to auscultation bilateral Cardiovascular: RRR, no significant murmur Gastrointestinal: soft, non-tender Musculoskeletal: no edema, pulses present Psychiatric: A&O x 3 Skin: no rash Dx/Plan - Plan Plan: 70 yo M with PMH COPD, CKD, hypothyroid is admitted for sepsis 2/2 pneumonia, rhabdo, zak. Sepsis (resolved) 2/2 Bacterial Pneumonia vs COVID Pneumonia - continue rocephin and azithromycin d/c (3/3 days) - procalcintonin elevated so will continue abx. He also has history of COPD. - Clinically stable, resting comfortably Bradycardia - EKG today, likely 2/2 COVID COVID+ - good saturation with 3 L NC O2 - pending plasma, remdesivir administered. Currently treated with dexamethasone. - PT/OT consulted - recommend Home w/ HH ZAK on CKD3 - resolved Thrombocytopenia - stable, low normal today Mild AST elevation - resolved Possibly 2/2 hypotension - 70 on admission, has been mildly elevated in past - hx of alcohol use but stopped 3 months ago. Unsure if reliable COPD - continue dickson inhaler (on advair at home) with prn Hypothyroid - continue home synthroid HTN - hold home lisinopril, HCTZ until BP can tolerate and kidney function returns to baseline HLD - continue home statin Group B Strep Bactuiria - < 100,000 CFU's but is on a abx IVF: PO DVT ppx: Lovenox Diet: HH Code: FULL PCP: JORDEN Addendum - Attending - Attending Attestation Date/Time: 11/26/20 6615 I personally evaluated the patient and discussed the management with Dr. Alvarez. I agree with the History, Examination, Assessment and Plan documented above with any addition or exceptions noted below. Patient overall stable. Here for COVID pneumonia and hypoxia, wean O2 as tolerated. Continues on steroids and Remdesevir. Placement will be difficult given his social situation. Mentation stable.
[2020-11-26] MEDS: Enoxaparin Sodium 40 MG/0.4 ML SYRINGE SC SCH (08:47)
[2020-11-26] MEDS: Dexamethasone 4 MG TAB PO SCH (08:47)
--- NOTE | 2020-11-26 12:56 | PRG ---
DATE OF SERVICE: 11/26/2020 OBJECTIVE: VITAL SIGNS: His temperature 98, pulse is 50, respiratory rate 24, sats , and blood pressure 104/59. GENERAL: Sitting at the side of the bed yesterday without any distress. LUNGS: No wheezing. No crackles. CARDIAC: Normal S1 and S2. No gallops. ABDOMEN: No masses. LABORATORY DATA: White count 9000. ASSESSMENT AND PLAN: Coronavirus positive pneumonia, baseline chronic obstructive pulmonary disease, much improved. Switch him over to oral antibiotics, oral prednisone. Hopefully disposition, after he has finished his remdesivir, home. Job ID: [id number]
[2020-11-26] MEDS: cefTRIAXone\\ROCEPHIN 1 GM in Sodium Chloride 0.9% 100 ML IVPB SCH (14:04)
[2020-11-26] MEDS: REMDESIVIR (EUA) 100 MG in Sodium Chloride 0.9% 250 ML 230 ML IV SCH (21:36)
[2020-11-26] MEDS: Simvastatin 20 MG TAB PO SCH (21:37)
[2020-11-27] MEDS: Mometasone 200 MCG/Formoterol 5 MCG 120 PUFF INHALER INH SCH ×2 (05:20→21:36)
[2020-11-27] MEDS: Levothyroxine Sodium 100 MCG TAB PO SCH (05:20)
[2020-11-27 05:43] LABS: ALT (SGPT) 22 U/L (8-55); AST (SGOT) 24 U/L (5-34); Albumin 2.6 g/dL (3.4-4.8); Alkaline Phosphatase 40 U/L (40-110); Anion Gap 13 mmol/L (10-20); BUN (Urea Nitrogen) 39 mg/dL (8.4-25.7); Bilirubin, Total 0.3 mg/dL (0.2-1.2); Calc. Creatinine Clearance 68 mL/min (70-130); Calcium 6.5 mg/dL (7.8-10.44); Carbon Dioxide 24 mmol/L (23-31); Chloride 110 mmol/L (98-107); Globulin 2.8 g/dL (2.4-3.5); Glucose 111 mg/dL (83-110); Potassium 4.1 mmol/L (3.5-5.1); Protein, Total 5.4 g/dL (5.8-8.1); Sodium 143 mmol/L (136-145)
--- NOTE | 2020-11-27 06:27 | PDOC.FM ---
- Subjective Subjective: Pt in bed with NC off of face. He was sat'ing 86%. Replaced oxygen and he began sat'ing 92%. He intermittently takes off oxygen. He does not have help at home - lives alone. Family is not in [place]. - Objective Vital Signs & Weight: Vital Signs (12 hours) Temp Pulse Resp BP Pulse Ox 11/27/20 04:02 93 L 11/27/20 04:00 97.9 F 56 L 24 H 99/55 L 86 L 11/26/20 23:01 97.7 F 50 L 24 H 136/64 95 11/26/20 21:34 96 11/26/20 20:08 97.8 F 47 L 32 H 105/59 L 97 Weight Admit Weight 66.678 kg Weight 82.69 kg Most Recent Monitor Data Heart Rate from ECG 71 NIBP 88/57 NIBP BP-Mean 67 Respiration from ECG 29 SpO2 99 I&O: 11/25/20 11/26/20 11/27/20 06:59 06:59 06:59 Intake Total 1090 Output Total 100 Balance 1090 -100 Result Diagrams: 11/27/20 04:47 11/27/20 04:47 Phys Exam - Physical Examination Constitutional: NAD HEENT: PERRLA, sclera anicteric Neck: no JVD, full ROM Respiratory: no wheezing, no rales, no rhonchi Cardiovascular: RRR, no significant murmur Gastrointestinal: soft, non-tender Musculoskeletal: pulses present trace LE edema Neurological: non-focal, normal sensation Psychiatric: A&O x 3 Skin: no rash, cap refill <2 seconds Dx/Plan - Plan Plan: 70 yo M with PMH COPD, CKD, hypothyroid is admitted for sepsis 2/2 pneumonia, rhabdo, zak. Sepsis (resolved) 2/2 Bacterial Pneumonia vs COVID Pneumonia - continue rocephin (5/5 today)and azithromycin d/c (3/3 days) - procalcintonin elevated so will continue abx. He also has history of COPD. - Clinically stable, resting comfortably Asymptomatic Bradycardia - EKG sinus bradycardia. Likely 2/2 COVID. COVID+ - good saturation with 1-3 L NC O2 - pending plasma, remdesivir administered. Currently treated with dexamethasone. - PT/OT consulted - recommend Home w/ HH. Do not think patient will be able to care for himself and monitor oxygen saturation with help. He does not have familiy in town to watch after him. He has assistance [facility] but it is not 24/7. ZAK on CKD3 - resolved Thrombocytopenia - stable, low normal today Mild AST elevation - resolved Possibly 2/2 hypotension - 70 on admission, has been mildly elevated in past - hx of alcohol use but stopped 3 months ago. Unsure if reliable COPD - continue dickson inhaler (on advair at home) with prn Hypothyroid - continue home synthroid HTN - hold home lisinopril, HCTZ until BP can tolerate and kidney function returns to baseline HLD - continue home statin Group B Strep Bactuiria - < 100,000 CFU's but is on a abx IVF: PO DVT ppx: Lovenox Diet: HH Code: FULL PCP: JORDEN Addendum - Attending - Attending Attestation Date/Time: 11/27/20 9300 I personally evaluated the patient and discussed the management with Dr. Alvarez I agree with the History, Examination, Assessment and Plan documented above with any addition or exceptions noted below. 70 yo male admitted for acute respiratory failure due to COVID PNA with underlying COPD and UTI Patient improved but still requiring O2. Not wearing consistantly. Not able to take care of self at home. No family nearby and family otherwise will not care for him. CM consulted to help with placement. Will need 24/7 care due to needs. Patient with baseline cognitive disability. Stop daily labs. Mick
[2020-11-27 06:40] LABS: Band 9 % (5-11); Hemoglobin 12.5 g/dL (14.0-18.0); Lymphocytes 5 % (21-51); MDiff Complete? YES; Mean Corpuscular HGB CONC 30.8 g/dL (32.0-36.0); Mean Corpuscular Hemoglobin 29.6 pg (27.0-31.0); Mean Corpuscular Volume 96.2 fL (78.0-98.0); Mean Platelet Volume 8.9 fL (7.4-10.4); Monocytes 4 % (0-10); Neutrophil 82 % (42-75); Platelet Count 190 thou/uL (130-400); RBC Distribution Width 13.1 % (11.5-14.5); Red Blood Cell (RBC) Count 4.23 mill/uL (4.70-6.10); White Blood Cell (WBC) Count 10.7 thou/uL (4.8-10.8)
[2020-11-27] MEDS: Enoxaparin Sodium 40 MG/0.4 ML SYRINGE SC SCH (09:36)
[2020-11-27] MEDS: Dexamethasone 4 MG TAB PO SCH (09:36)
[2020-11-27] MEDS: cefTRIAXone\\ROCEPHIN 1 GM in Sodium Chloride 0.9% 100 ML IVPB SCH (15:40)
[2020-11-27] MEDS: Simvastatin 20 MG TAB PO SCH (21:14)
[2020-11-27] MEDS: REMDESIVIR (EUA) 100 MG in Sodium Chloride 0.9% 250 ML 230 ML IV SCH (21:24)
[2020-11-28] MEDS: Levothyroxine Sodium 100 MCG TAB PO SCH (05:05)
[2020-11-28 05:18] LABS: Hemoglobin 13.5 g/dL (14.0-18.0); Mean Corpuscular HGB CONC 32.2 g/dL (32.0-36.0); Mean Corpuscular Hemoglobin 30.6 pg (27.0-31.0); Mean Corpuscular Volume 94.9 fL (78.0-98.0); Mean Platelet Volume 8.6 fL (7.4-10.4); Platelet Count 227 thou/uL (130-400); Red Blood Cell (RBC) Count 4.41 mill/uL (4.70-6.10); White Blood Cell (WBC) Count 11.3 thou/uL (4.8-10.8)
[2020-11-28] MEDS: Mometasone 200 MCG/Formoterol 5 MCG 120 PUFF INHALER INH SCH ×2 (07:05→18:03)
--- NOTE | 2020-11-28 07:26 | PDOC.FM ---
- Subjective Subjective: Pt is doing well without complications. He is tolerating PO intake. He is still requiring oxygen. Family does not believe he is fit to be discharged to home with oxygen. He denies fever, chills. He is urinating well. - Objective Vital Signs & Weight: Vital Signs (12 hours) Temp Pulse Resp BP Pulse Ox 11/28/20 04:00 59 L 20 101/56 L 91 L 11/28/20 00:00 64 92 L 11/27/20 20:00 95 11/27/20 19:42 98.0 F 80 20 113/56 L 95 Weight Admit Weight 66.678 kg Weight 82.69 kg Most Recent Monitor Data Heart Rate from ECG 71 NIBP 88/57 NIBP BP-Mean 67 Respiration from ECG 29 SpO2 99 I&O: 11/27/20 11/28/20 11/29/20 06:59 06:59 06:59 Intake Total 600 Output Total 202 Balance 398 Result Diagrams: 11/28/20 04:41 11/27/20 04:47 Phys Exam - Physical Examination Constitutional: NAD HEENT: PERRLA, moist MMs Neck: no JVD, full ROM Respiratory: no rales, no rhonchi Cardiovascular: RRR, no significant murmur Gastrointestinal: soft, non-tender Musculoskeletal: no edema, pulses present Psychiatric: A&O x 3 Skin: no rash, normal turgor Dx/Plan - Plan Plan: 70 yo M with PMH COPD, CKD, hypothyroid: Bacterial Pneumonia - continue rocephin (5/5 today)and azithromycin d/c (3/3 days) - Clinically stable, resting comfortably COVID+ - good saturation with 1-3 L NC O2 - plasma not administered due to consent, remdesivir administered. Currently treated with dexamethasone day 6. - PT/OT consulted - recommend Home w/ HH. Do not think patient will be able to care for himself and monitor oxygen saturation with help. He does not have familiy in town to watch after him. He has assistance from [facility] but it is not 16/06. Discussed with CM who sent for placement. ZAK on CKD3 - resolved Thrombocytopenia - aware, no signs of bleeding Mild AST elevation - resolved - Possibly 2/2 hypotension COPD - continue dickson inhaler (on advair at home) with prn Hypothyroid - continue home synthroid HTN - hold home lisinopril, HCTZ - BP well controlled HLD - continue home statin Group B Strep Bactuiria - < 100,000 CFU's. Completed abx IVF: PO DVT ppx: Lovenox Diet: HH Code: FULL PCP: JORDEN Addendum - Attending - Attending Attestation Date/Time: 11/28/20 5293 I personally evaluated the patient and discussed the management with Dr. Alvarez. I agree with the History, Examination, Assessment and Plan documented above with any addition or exceptions noted below. Patient stable. Continue to wean O2 as tolerated. Overall doing well from COVID. Needs terminologist placement and we are working with CM to arrange for that.
[2020-11-28] MEDS: Dexamethasone 4 MG TAB PO SCH (09:07)
[2020-11-28] MEDS: Enoxaparin Sodium 40 MG/0.4 ML SYRINGE SC SCH (09:07)
--- NOTE | 2020-11-28 10:34 | EKG ---
Test Reason : Blood Pressure : / mmHG Vent. Rate : 057 BPM Atrial Rate : 057 BPM P-R Int : 134 ms QRS Dur : 078 ms QT Int : 464 ms P-R-T Axes : 055 066 067 degrees QTc Int : 451 ms Sinus bradycardia Otherwise normal ECG Confirmed by Nga GRANADOS ([id number]) on 11/28/2020 10:34:01 AM Referred By: RODO Confirmed By:Nga GRANADOS
[2020-11-28 21:39] VITALS: BP 131/63; TEMP 98.5
== END 2020-11-28 23:00 | disposition swing bed (61) | DRG 871 ==
LOC: ERS 12:17 → CCU 14:44 → 2SW 11-23 22:18
PROVIDERS: ADMIT Student in an Organized Health Care Education/Training Program; ATTEND Student in an Organized Health Care Education/Training Program
PROC: 8E0ZXY6 Isolation (ICD-10-PCS; principal; 2020-11-22)
PROC: 3E033XZ Introduction of Vasopressor into Peripheral Vein, Percutaneous Approach (ICD-10-PCS; 2020-11-22)
PROC: XW033E5 Introduction of Remdesivir Anti-infective into Peripheral Vein, Percutaneous Approach, New Technology Group 5 (ICD-10-PCS; 2020-11-23)
PROC: XW13325 Transfusion of Convalescent Plasma (Nonautologous) into Peripheral Vein, Percutaneous Approach, New Technology Group 5 (ICD-10-PCS; 2020-11-24)
DX: A41.89 Other specified sepsis (principal); U07.1 COVID-19; J96.01 Acute respiratory failure with hypoxia; J12.82 Pneumonia due to coronavirus disease 2019; R57.1 Hypovolemic shock; R65.21 Severe sepsis with septic shock; J15.9 Unspecified bacterial pneumonia; J44.0 Chronic obstructive pulmonary disease with (acute) lower respiratory infection; M62.82 Rhabdomyolysis; I13.0 Hypertensive heart and chronic kidney disease with heart failure and stage 1 through stage 4 chronic kidney disease, or unspecified chronic kidney disease; N17.9 Acute kidney failure, unspecified; E87.2 Acidosis; N39.0 Urinary tract infection, site not specified; E03.9 Hypothyroidism, unspecified; I50.9 Heart failure, unspecified; N18.30 Chronic kidney disease, stage 3 unspecified; E66.9 Obesity, unspecified; J84.10 Pulmonary fibrosis, unspecified; F70 Mild intellectual disabilities; E78.5 Hyperlipidemia, unspecified; R73.03 Prediabetes; D69.6 Thrombocytopenia, unspecified; E87.8 Other disorders of electrolyte and fluid balance, not elsewhere classified; F31.9 Bipolar disorder, unspecified; B95.1 Streptococcus, group B, as the cause of diseases classified elsewhere; F17.210 Nicotine dependence, cigarettes, uncomplicated; Z79.51 Long term (current) use of inhaled steroids; Z79.890 Hormone replacement therapy; Z79.899 Other long term (current) drug therapy; Z68.26 Body mass index [BMI] 26.0-26.9, adult
CPT/HCPCS: 0240U; 36415; 36430; 36600; 51701; 71045; 71275; 80048; 80053; 81003; 81015; 82550; 82728; 82805; 83605; 83615; 83690; 83880; 84145; 84443; 84484; 85025; 85027; 85379; 86140; 86850; 86900; 86901; 87040; 87086; 93005; 93010; 94660; 94760; 96365; 96366; 96367; 96375; J0456; J0696; J1100; J1650; J1956; J3370; J3490; J7050; J8540; P9017; Q9967

== ENCOUNTER 2021-04-06 14:17 | Outpatient (CLI) | payer MEDICARE, MEDICAID | END 2021-04-06 14:18 | disposition home or self-care (01) | LOC: BICRAD 14:17 | PROVIDERS: ATTEND Student in an Organized Health Care Education/Training Program | DX: M25.562 Pain in left knee (principal); R26.9 Unspecified abnormalities of gait and mobility; M17.12 Unilateral primary osteoarthritis, left knee ==